=== PATIENT | female | born 1980 | race Caucasian/White ===

== ENCOUNTER 2017-06-03 11:38 | Emergency (ER) | payer MEDICARE ==
[2017-06-03 12:40] VITALS: BP 135/98
[2017-06-03] MEDS ORDERED: Sodium Chloride 0.9% 10 ML Syringe FLUSH PRN (12:55)
[2017-06-03] MEDS ORDERED: Ketorolac 30 MG/ML SDV IVPUSH ONE (12:56)
[2017-06-03] MEDS ORDERED: HYDROmorphone 0.5 MG/0.5 ML Syringe IVPUSH ONE (12:56)
--- NOTE | 2017-06-03 13:01 | EDM.PDOC ---
ED HPI GENERAL MEDICAL PROBLEM - General Chief Complaint: Genitourinary Problem Stated Complaint: BLOOD IN URINE/DIZZY/FATIGUE Time Seen by Provider: 06/03/17 12:30 Source of Information: Reports: Patient, Family History Limitations: Reports: No Limitations - History of Present Illness INITIAL COMMENTS - FREE TEXT/NARRATIVE: Betty is a 36 year old female who presents to the ED today with her Jose M with multiple complaints. Patient and her are from [place], it sounds like they travel from State to [facility], most recently coming from [place]. Patient has hx of Hypothyroidism and Bipolar disorder, neither one of which is she taking medication for as she lacks a PCP. Patient today c/o a 3 day hx of dizziness/lightheadedness/lower back and bilateral hip pain. Patient endorses luiz blood in her urine and dysuria/frequency. She reports long standing hx of kidney stones that have been stented in the past but currently denies any flank pain. She denies any vaginal bleeding, states hx of hysterectomy. Patient has been sleeping on futon mattress in the camper her and her travel around in, she denies any trauma/injury. Patient denies any fever/vomiting/diarrhea, states her appetite has been overall decreased the last few months. Past Medical History Endocrine/Metabolic History: Reports: Hypothyroidism - Past Surgical History HEENT Surgical History: Reports: Tonsillectomy Female Surgical History: Reports: Hysterectomy, Kidney stone extraction, Lithotripsy/ESWL, Tubal Ligation Social & Family History - Tobacco Use Smoking Status *Q: Never Smoker ED ROS GENERAL - Review of Systems Review Of Systems: ROS reveals no pertinent complaints other than HPI. ED EXAM, GENERAL - Physical Exam Exam: See Below Exam Limited By: No Limitations General Appearance: Alert, WD/WN, No Apparent Distress Eye Exam: Bilateral Eye: EOMI Throat/Mouth: Normal Inspection, Normal Oropharynx Head: Atraumatic Neck: Normal Inspection, Supple, Non-Tender, Limited Range of Motion. No: Lymphadenopathy (R), Lymphadenopathy (L), Thyromegaly Respiratory/Chest: No Respiratory Distress, Lungs Clear, Normal Breath Sounds Cardiovascular: Normal Peripheral Pulses, Regular Rate, Rhythm, No Murmur Back Exam: Normal Inspection, Paraspinal Tenderness (lower lumbar radiating to bilateral sciatica region) Extremities: Normal Inspection, Normal Range of Motion, Other (sensation, cirulation, strength intact to bilateral lower extremties. ) Neurological: Alert, Oriented, CN II-XII Intact, No Motor/Sensory Deficits Psychiatric: Normal Affect, Normal Mood Skin Exam: Warm, Dry, Intact Lymphatic: No Adenopathy Course - Vital Signs Last Recorded V/S: Last Vital Signs Temp 36.8 C 06/03/17 12:39 Pulse 70 06/03/17 12:39 Resp 14 06/03/17 12:39 BP 135/98 H 06/03/17 12:39 Pulse Ox 98 06/03/17 12:39 Betty is a 36 year old female who presents to the ED today with multiple complaints for the last several days. Please refer to HPI and focused exam. Concerns initially for a ureteral stone, however, pain is lower lumbar and UA is clear for blood and infection. Patient does have untreated, previously diagnosed hypothyroidism which may definitely may be playing a role in her symptoms. PIV established and blood work obtained. Patient given dilaudid and toradol for her hip pain with good relief. CBC returns with normal white count of 8.9, HGB is stable is 12.6. CMP returns with sodium of 139 and potassium of 3.2, she was given 40 meq oral replacement for this. Not surprisingly, patient' s TSH returns quite elevated at 134.125, Free T4 is low at 0.29. Creatinine is mildly elevated at 1.1, GFR is 57. I discussed findings of today's exam with patient. She currently lacks a primary care provider and plans on being in [place] in the next few weeks. I feel she really needs to be restarted at on her Synthroid today but clearly needs to have her TSH checked in 6 weeks, based on weight, patient should be initiated on 160 mg, given her uncertainty of follow up, I am going to starth her on 137 mcg daily and have provided a 6 week supply. Patient reports that her last dose was 350 mcg daily. She can continue to take Ibuprofen for her hip pain, I will given a small supply of Percocet for severe pain (no prior opioids on the [place] ZIGZAG APPLIQUER). I encouraged patient to stay well hydrated, reasons to return to the ED discussed in detail. Patient and her are agreeable and patient was discharged on stable condition. - Orders/Labs/Meds Orders: Active Orders 24 hr Category Date Time Status Peripheral IV Care [RC] . DIRECTED Care 06/03/17 12:55 Active Sodium Chloride 0.9% [Saline Flush] Med 06/03/17 12:55 Active 10 ml FLUSH ASDIRECTED PRN Peripheral IV Insertion Adult [OM.PC] Routine Oth 06/03/17 12:55 Ordered Medication Orders Sodium Chloride (Saline Flush) 10 ml FLUSH ASDIRECTED PRN PRN Reason: Keep Vein Open Last Admin: 06/03/17 13:56 Dose: 10 ml Labs: Laboratory Tests 06/03/17 06/03/17 06/03/17 Range/Units 12:26 12:36 12:55 WBC 8.9 (4.5-11.0) K/uL RBC 3.73 (3.30-5.50) M/uL Hgb 12.6 (12.0-15.0) g/dL Hct 37.0 (36.0-48.0) % MCV 99 H (80-98) fL MCH 34 H (27-31) pg MCHC 34 (32-36) % Plt Count 192 (150-400) K/uL Neut % (Auto) 71 H (36-66) % Lymph % (Auto) 22 L (24-44) % Bureau % (Auto) 5 (2-6) % Eos % (Auto) 1 L (2-4) % Baso % (Auto) 1 (0-1) % Sodium (140-148) mmol/L Potassium (3.6-5.2) mmol/L Chloride (100-108) mmol/L Carbon Dioxide (21-32) mmol/L Anion Gap (5.0-14.0) mmol/L BUN (7-18) mg/dL Creatinine (0.6-1.0) mg/dL Est Cr Clr Drug Dosing mL/min Estimated GFR (MDRD) (>60) Glucose (74-106) mg/dL Calcium (8.5-10.1) mg/dL Total Bilirubin (0.2-1.0) mg/dL AST (15-37) U/L ALT (12-78) U/L Alkaline Phosphatase (46-116) U/L Total Protein (6.4-8.2) g/dL Albumin (3.4-5.0) g/dL Globulin (2.3-3.5) g/dL Albumin/Globulin Ratio (1.2-2.2) Free T4 (0.76-1.46) ng/dL Free T3 (2.18-3.98) pg/dL TSH, Ultra Sensitive (0.358-3.740) uIU/mL Urine Color Yellow Urine Appearance Slightly cloudy Urine pH 6.0 (4.5-8.0) Ur Specific Follett 1.020 (1.008-1.030) Urine Protein Negative (NEGATIVE) mg/dL Urine Glucose (UA) Normal (NEGATIVE) mg/dL Urine Ketones Negative (NEGATIVE) mg/dL Urine Occult Blood Negative (NEGATIVE) Urine Nitrite Negative (NEGATIVE) Urine Bilirubin Negative (NEGATIVE) Urine Urobilinogen Normal (NORMAL) mg/dL Ur Leukocyte Esterase Negative (NEGATIVE) Urine RBC 0-5 (0-5) Urine WBC 0-5 (0-5) Ur Epithelial Cells Many Amorphous Sediment Rare Urine Bacteria Not seen Urine Mucus Not seen Urine HCG, Qual Negative 06/03/17 Range/Units 13:00 WBC (4.5-11.0) K/uL RBC (3.30-5.50) M/uL Hgb (12.0-15.0) g/dL Hct (36.0-48.0) % MCV (80-98) fL MCH (27-31) pg MCHC (32-36) % Plt Count (150-400) K/uL Neut % (Auto) (36-66) % Lymph % (Auto) (24-44) % Bureau % (Auto) (2-6) % Eos % (Auto) (2-4) % Baso % (Auto) (0-1) % Sodium 139 L (140-148) mmol/L Potassium 3.2 L (3.6-5.2) mmol/L Chloride 102 (100-108) mmol/L Carbon Dioxide 27 (21-32) mmol/L Anion Gap 13.2 (5.0-14.0) mmol/L BUN 9 (7-18) mg/dL Creatinine 1.1 H (0.6-1.0) mg/dL Est Cr Clr Drug Dosing 61.64 mL/min Estimated GFR (MDRD) 57 L (>60) Glucose 101 (74-106) mg/dL Calcium 8.6 (8.5-10.1) mg/dL Total Bilirubin 0.5 (0.2-1.0) mg/dL AST 15 (15-37) U/L ALT 14 (12-78) U/L Alkaline Phosphatase 77 (46-116) U/L Total Protein 7.9 (6.4-8.2) g/dL Albumin 3.6 (3.4-5.0) g/dL Globulin 4.3 H (2.3-3.5) g/dL Albumin/Globulin Ratio 0.8 L (1.2-2.2) Free T4 0.29 L (0.76-1.46) ng/dL Free T3 1.17 L (2.18-3.98) pg/dL TSH, Ultra Sensitive 134.125 H (0.358-3.740) uIU/mL Urine Color Urine Appearance Urine pH (4.5-8.0) Ur Specific Follett (1.008-1.030) Urine Protein (NEGATIVE) mg/dL Urine Glucose (UA) (NEGATIVE) mg/dL Urine Ketones (NEGATIVE) mg/dL Urine Occult Blood (NEGATIVE) Urine Nitrite (NEGATIVE) Urine Bilirubin (NEGATIVE) Urine Urobilinogen (NORMAL) mg/dL Ur Leukocyte Esterase (NEGATIVE) Urine RBC (0-5) Urine WBC (0-5) Ur Epithelial Cells Amorphous Sediment Urine Bacteria Urine Mucus Urine HCG, Qual Meds: Medications Generic Name Dose Route Start Last Admin Trade Name Fretimur PRN Reason Stop Dose Admin Sodium Chloride 10 ml 06/03/17 12:55 06/03/17 13:56 Saline Flush FLUSH 10 ml ASDIRECTED PRN Administration Keep Vein Open Discontinued Medications Generic Name Dose Route Start Last Admin Trade Name Ayan PRN Reason Stop Dose Admin Hydromorphone HCl 0.5 mg 06/03/17 12:56 06/03/17 13:57 Dilaudid IVPUSH 06/03/17 12:57 0.5 mg ONETIME ONE Administration Ketorolac Tromethamine 30 mg 06/03/17 12:56 06/03/17 13:57 Toradol IVPUSH 06/03/17 12:57 30 mg ONETIME ONE Administration Potassium Chloride 40 meq 06/03/17 13:50 Potassium Chloride Solution PO 06/03/17 13:51 ONETIME ONE Departure - Departure Time of Disposition: 15:00 Disposition: Home, Self-Care 01 Condition: Good Clinical Impression: Primary hypothyroidism, Hypokalemia Low back pain Qualifiers: Chronicity: acute Back pain laterality: midline Sciatica presence: with sciatica Sciatica laterality: bilateral sciatica Qualified Code(s): M54.42 - Lumbago with sciatica, left side; M54.41 - Lumbago with sciatica, right side - Discharge Information Instructions: Hypothyroidism, Back Pain, Adult Forms: ED Department Discharge Additional Instructions: Betty, Start you Synthroid today, take daily. You will need to establish primary care and have your TSH/T4 levels rechecked in 6 weeks, sooner if you are not feeling any improvement in your symptoms. You can continue Ibuprofen for your lower back pain, ice and heat may help as well. You can take Percocet if needed for severe pain, no driving if you take this as it is a narcotic. If you experience any worsening or concerning symptoms please return to the ED. - My Orders Last 24 Hours: My Active Orders 06/03/17 12:55 Peripheral IV Care [RC] . DIRECTED Sodium Chloride 0.9% [Saline Flush] 10 ml FLUSH ASDIRECTED PRN Peripheral IV Insertion Adult [OM.PC] Routine - Assessment/Plan Last 24 Hours: My Active Orders 06/03/17 12:55 Peripheral IV Care [RC] . DIRECTED Sodium Chloride 0.9% [Saline Flush] 10 ml FLUSH ASDIRECTED PRN Peripheral IV Insertion Adult [OM.PC] Routine
[2017-06-03] MEDS ORDERED: Potassium Chloride 10% 20 MEQ/15 ML Soln 15 ML UD Cup PO ONE (13:50)
[2017-06-03] MEDS ORDERED: Potassium Chloride 20 MEQ Tab.ER PO ONE (14:45)
== END 2017-06-03 14:45 | disposition home or self-care (01) ==
LOC: JP.ED 11:38
DX: E03.9 Hypothyroidism, unspecified (principal); M54.41 Lumbago with sciatica, right side; E87.6 Hypokalemia; Z98.890 Other specified postprocedural states
CPT/HCPCS: 36415; 80053; 81001; 81025; 84439; 84443; 84481; 85025; 96374; 96375; 99284; A9270; J1170; J1885; J7050